=== PATIENT | male | born 1960 ===

== ENCOUNTER 2022-05-15 14:49 | Inpatient (IN) | payer SELFPAY ==
[2022-05-15] MEDS ORDERED: Sodium Chloride 0.9% 10 ML Syringe FLUSH PRN ×2 (15:03→19:11)
[2022-05-15] MEDS ORDERED: Diltiazem 25 MG/5 ML SDV IVPUSH ONE (15:19)
[2022-05-15 15:43] LABS: PTT,PARTIAL THROMBOPLSTIN TIME 22.5 SEC (22.0-34.0)
[2022-05-15 15:44] LABS: ANION GAP 16.6 mEq/L (7-13); CHLORIDE,CL 107 mmol/L (98-107); SODIUM,NA 141 mmol/L (136-145)
[2022-05-15 15:46] LABS: ESTIMATED GFR 42 mL/min (>=60)
[2022-05-15] MEDS ORDERED: Heparin Sodium 5,000 Units/ML Vial IVPUSH ONE (15:48)
[2022-05-15] MEDS ORDERED: Furosemide 100 MG/10 ML SDV IVPUSH ONE (15:56)
[2022-05-15] MEDS: Heparin Sodium/0.45% NaCl 25,000 UNITS/500 ML BAG IV SCH (15:57)
[2022-05-15 16:02] LABS: CORONAVIRUS COVID-19 NAA NEGATIVE (NEGATIVE); RESPIRATORY SYNCYTIAL VIR NAA NEGATIVE (NEGATIVE)
[2022-05-15] MEDS ORDERED: Diltiazem 125 MG in Sodium Chloride 0.9% 100 ML IV SCH (18:00)
[2022-05-15] MEDS ORDERED: Aspirin 325 MG Tab PO ONE (19:08)
[2022-05-15] MEDS ORDERED: Acetaminophen 325 MG Tab PO PRN (19:09)
[2022-05-15] MEDS ORDERED: Polyethylene Glycol 3350 Powder 17 GM Packet PO PRN (19:11)
[2022-05-15] MEDS ORDERED: Magnesium Hydroxide 400 MG/5 ML Susp 30 ML Cup PO PRN (19:11)
[2022-05-15] MEDS ORDERED: Bisacodyl 5 MG Tab PO PRN (19:11)
[2022-05-15] MEDS ORDERED: Albuterol/Ipratropium 3.0-0.5 MG/3 ML Neb Soln NEB PRN (19:11)
[2022-05-15] MEDS: Lactated Ringers 1,000 ML IV SCH (20:47)
[2022-05-15] MEDS: Metoprolol Tartrate 25 MG Tab PO SCH (22:04)
[2022-05-15] MEDS: Acetaminophen/HYDROcodone 325-5 MG Tab PO PRN (23:22)
[2022-05-15] MEDS: Sodium Chloride 0.9% 10 ML Syringe FLUSH SCH (23:27)
[2022-05-15] MEDS: HYDROmorphone 0.5 MG/0.5 ML Syringe IVPUSH PRN (23:37)
[2022-05-15 23:54] LABS: AMPHETAMINES,URINE NEGATIVE (NEGATIVE); BARBITURATES,URINE NEGATIVE (NEGATIVE); BENZODIAZEPINE,URINE NEGATIVE (NEGATIVE); MDMA (ECSTASY), URINE NEGATIVE (NEGATIVE); METHADONE,URINE NEGATIVE (NEGATIVE); METHAMPHETAMINES,URINE NEGATIVE (NEGATIVE); OPIATES,URINE NEGATIVE (NEGATIVE); OXYCODONE,URINE POSITIVE (NEGATIVE); PHENCYCLIDINE,URINE NEGATIVE (NEGATIVE); TCA,URINE NEGATIVE (NEGATIVE)
[2022-05-16] MEDS ORDERED: Heparin Sodium 5,000 Units/ML Vial IVPUSH ONE (01:07)
[2022-05-16] MEDS: Acetaminophen/HYDROcodone 325-5 MG Tab PO PRN ×2 (04:47→11:01)
[2022-05-16 06:50] LABS: ANION GAP 20.1 mEq/L (7-13)
[2022-05-16] MEDS: Metoprolol Tartrate 25 MG Tab PO SCH ×2 (08:59→20:55)
[2022-05-16] MEDS ORDERED: Diphtheria,Pertussis(Acell),Tetanus Vaccine 0.5 ML Syringe IM ONE (09:00)
[2022-05-16] MEDS: Aspirin 81 MG Tab.Chew PO SCH (09:03)
[2022-05-16] MEDS: Heparin Sodium/0.45% NaCl 25,000 UNITS/500 ML BAG IV SCH ×3 (09:04→15:50)
[2022-05-16] MEDS: Sodium Chloride 0.9% 10 ML Syringe FLUSH SCH ×2 (09:04→20:56)
[2022-05-16] MEDS: Lactated Ringers 1,000 ML IV SCH (11:01)
[2022-05-16] MEDS ORDERED: QUEtiapine 25 MG Tab PO PRN (18:00)
[2022-05-16] MEDS ORDERED: Ziprasidone HCl 20 MG Cap PO PRN (18:00)
[2022-05-16] MEDS ORDERED: Warfarin 5 MG Tab PO ONE (18:00)
[2022-05-16 22:27] LABS: ANION GAP 18.9 mEq/L (7-13)
[2022-05-16] MEDS: Ondansetron 4 MG/2 ML SDV IVPUSH PRN (22:54)
[2022-05-17] MEDS ORDERED: Heparin Sodium 5,000 Units/ML Vial IVPUSH ONE (05:15)
[2022-05-17 07:13] LABS: ANION GAP 18.9 mEq/L (7-13)
[2022-05-17] MEDS ORDERED: Lactated Ringers 1,000 ML IV SCH (08:30)
[2022-05-17] MEDS: Metoprolol Tartrate 25 MG Tab PO SCH ×2 (08:35→20:29)
[2022-05-17] MEDS: Aspirin 81 MG Tab.Chew PO SCH (08:36)
[2022-05-17] MEDS: Sodium Chloride 0.9% 10 ML Syringe FLUSH SCH ×2 (08:36→20:33)
[2022-05-17] MEDS: Heparin Sodium/0.45% NaCl 25,000 UNITS/500 ML BAG IV SCH (09:53)
[2022-05-17] MEDS: HYDROmorphone 0.5 MG/0.5 ML Syringe IVPUSH PRN (13:11)
[2022-05-17] MEDS ORDERED: Warfarin 2 MG Tab PO ONE (14:00)
[2022-05-17] MEDS ORDERED: HYDROmorphone 0.5 MG/0.5 ML Syringe IVPUSH PRN (17:49)
[2022-05-17 19:01] LABS: ANION GAP 14.1 mEq/L (7-13)
[2022-05-17] MEDS ORDERED: Water For Injection, Sterile 10 ML ONE (19:35)
[2022-05-17] MEDS: Ziprasidone Mesylate 20 MG Vial IM PRN (19:49)
[2022-05-17] MEDS: Lidocaine 5% 700 MG Patch TOP SCH (20:31)
[2022-05-18 06:58] LABS: ANION GAP 15.7 mEq/L (7-13)
[2022-05-18] MEDS ORDERED: Check Patch TRDERM SCH (09:00)
[2022-05-18] MEDS: Aspirin 81 MG Tab.Chew PO SCH (09:20)
[2022-05-18] MEDS: Metoprolol Tartrate 25 MG Tab PO SCH ×2 (09:20→20:37)
[2022-05-18] MEDS: Sodium Chloride 0.9% 10 ML Syringe FLUSH SCH ×2 (09:21→20:39)
[2022-05-18] MEDS ORDERED: Warfarin 2 MG Tab PO ONE (14:00)
[2022-05-18] MEDS ORDERED: Lisinopril 10 MG Tab PO ONE (17:00)
[2022-05-18] MEDS ORDERED: Furosemide 40 MG Tab PO ONE (18:00)
[2022-05-18] MEDS ORDERED: Pantoprazole 40 MG Vial IVPUSH ONE (19:26)
[2022-05-18] MEDS ORDERED: Water For Injection, Sterile 10 ML ONE (19:31)
[2022-05-18] MEDS: Ziprasidone Mesylate 20 MG Vial IM PRN (19:44)
[2022-05-18] MEDS: Ondansetron 4 MG/2 ML SDV IVPUSH PRN (19:49)
[2022-05-18] MEDS: Lidocaine 5% 700 MG Patch TOP SCH (20:38)
[2022-05-19 07:04] LABS: ANION GAP 15.5 mEq/L (7-13)
[2022-05-19] MEDS: Metoprolol Tartrate 25 MG Tab PO SCH (08:35)
[2022-05-19] MEDS: Aspirin 81 MG Tab.Chew PO SCH (08:35)
[2022-05-19] MEDS: Sodium Chloride 0.9% 10 ML Syringe FLUSH SCH (08:43)
[2022-05-19] MEDS ORDERED: Lisinopril 10 MG Tab PO SCH (09:00)
[2022-05-19] MEDS ORDERED: Furosemide 40 MG Tab PO SCH (09:00)
[2022-05-19] MEDS ORDERED: Pantoprazole 40 MG Vial IVPUSH SCH (09:00)
== END 2022-05-19 14:00 | disposition home or self-care (01) | DRG 281 ==
LOC: DL.ED 14:49 → DL.MS 17:51 → DL.ED 19:00
PROVIDERS: ADMIT Internal Medicine; ATTEND Internal Medicine
DX: I48.91 Unspecified atrial fibrillation (principal); I21.4 Non-ST elevation (NSTEMI) myocardial infarction; B17.9 Acute viral hepatitis, unspecified; N17.9 Acute kidney failure, unspecified; I50.22 Chronic systolic (congestive) heart failure; I42.6 Alcoholic cardiomyopathy; I42.9 Cardiomyopathy, unspecified; R74.01 Elevation of levels of liver transaminase levels; F19.10 Other psychoactive substance abuse, uncomplicated; R79.1 Abnormal coagulation profile; R73.9 Hyperglycemia, unspecified; E80.6 Other disorders of bilirubin metabolism; I11.0 Hypertensive heart disease with heart failure; R74.8 Abnormal levels of other serum enzymes; F41.0 Panic disorder [episodic paroxysmal anxiety]; Z79.82 Long term (current) use of aspirin; Z79.01 Long term (current) use of anticoagulants; Z79.899 Other long term (current) drug therapy; Z86.16 Personal history of COVID-19; Z20.822 Contact with and (suspected) exposure to COVID-19
CPT/HCPCS: 0241U; 36415; 71045; 76700; 76770; 80053; 80061; 80143; 80305-QW; 80307; 83735; 83880; 84439; 84443; 84484; 85025; 85379; 85610; 85730; 90471; 93005; 93306; 94010; 96365; 96375; 96376; 97161-GP; 97165-GO; 99233; 99238; 99285-25; A9270-GY; C9113; J1170; J1644; J1940; J2405; J3486; J3490; J7120